=== PATIENT | female | born 1950 | race Caucasian/White ===

== ENCOUNTER 2024-07-01 08:59 | Outpatient (CLI) | payer MEDICARE, SELFPAY ==
--- NOTE | ~2024-07-01 | XR_ITS ---
XR chest 2V 07/01/2024 09:23 Indication: Intermittent asthma. Procedure: 2 view chest Comparison: No prior studies for comparison. Findings: Large hiatal hernia. Heart size normal. No focal air space disease, pulmonary edema, pleura l effusion or suspected pneumothorax. No acute osseous abnormality. Impression: 1: Large hiatal hernia. Reviewed, dictated and finalized at location B. GER QUALITY COMPLIANCE Impression: 1: Large hiatal hernia.
== END 2024-07-01 09:00 | disposition home or self-care (01) ==
PROVIDERS: PCP Internal Medicine; Visit Provider Internal Medicine
DX: J45.20 Mild intermittent asthma, uncomplicated (principal); J30.1 Allergic rhinitis due to pollen; R06.09 Other forms of dyspnea; K44.9 Diaphragmatic hernia without obstruction or gangrene
CPT/HCPCS: 71046